=== PATIENT | male | born 1985 | race Caucasian/White ===

== ENCOUNTER 2021-02-06 16:10 | Emergency (ER) | payer OTHER, BC, SELFPAY ==
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
[2021-02-06 16:13] VITALS: BP 117/65; PULSE 77; RESP 18; TEMP 36.6; O2SAT 95; BMI 29.6
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
[2021-02-06] MEDS: Diphth,Pertus(ACell),Tet Adult 0.5 ML SYRINGE IM (17:46)
== END 2021-02-06 18:05 | disposition home or self-care (01) ==
PROVIDERS: Emergency Provider Emergency Medicine Emergency Medical Services
DX: S80.12XA Contusion of left lower leg, initial encounter (principal); S80.812A Abrasion, left lower leg, initial encounter; S93.402A Sprain of unspecified ligament of left ankle, initial encounter; S40.011A Contusion of right shoulder, initial encounter; V22.4XXA Motorcycle driver injured in collision with two- or three-wheeled motor vehicle in traffic accident, initial encounter; Y93.89 Activity, other specified; Y92.414 Local residential or business street as the place of occurrence of the external cause; Y99.9 Unspecified external cause status
CPT/HCPCS: 73000; 73030; 73560; 73590; 73610; 90471; 90715; 99283; 99284

== ENCOUNTER 2021-08-11 08:07 | Emergency (ER) | payer BC, SELFPAY ==
[2021-08-11 08:14] VITALS: BP 145/59; PULSE 50; RESP 16; TEMP 36.8; O2SAT 99
[2021-08-11 08:17] VITALS: BMI 29.7
[2021-08-11 08:30] LABS: MANUAL DIFF FLAG NO
[2021-08-11 08:32] LABS: Basophils Percent Auto 0.1 % (0-2); Hematocrit 45.6 % (42.0-52.0); Hemoglobin 15.9 g/dl (14.0-18.0); Imm Gran Abs Auto 0.02 X10*3/uL (0.00-0.03); Imm Gran Pct Auto 0.2 % (0.0-0.4); Lymphocytes Absolute Auto 0.9 X10*3/uL (1.2-4.9); Lymphocytes Percent Auto 9.8 % (20-40); Mean Corpuscular HGB Conc 34.9 g/dl (31.0-36.0); Mean Corpuscular Hemoglobin 30.8 pg (27.0-33.0); Mean Corpuscular Volume 88.4 fL (80.0-98.0); Mean Platelet Volume 9.6 fL (9.4-12.4); Monocytes Absolute Auto 0.7 X10*3/uL (0.1-1.2); Monocytes Percent Auto 7.5 % (2-11); Neutrophils Absolute Auto 7.4 x10*3/uL (2.0-8.3); Neutrophils Percent Auto 82.4 % (45-73); Platelet Count 253 X10*3/uL (160-400); Red Blood Count 5.16 X10*6/uL (4.60-5.80); Red Cell Distribution Width 11.2 % (11.0-16.0)
[2021-08-11] MEDS: ondansetron HCL 4 MG/2 ML VIAL IVPUSH (08:40)
[2021-08-11] MEDS: Lactated Ringers 1,000 ML 999 ML IV ×2 (08:41)
[2021-08-11 08:48] LABS: Appearance Urine CLEAR; Color Urine YELLOW; Glucose Urine UA NEG (NEG); Leukocyte Esterase Urine NEG (NEG); Nitrite Urine NEG (NEG); UACC Culture Trigger NO; Urine Blood NEG (NEG); Urine Ketones NEG (NEG); Urine Protein 1+ MG/DL (NEG-TRACE)
[2021-08-11 08:56] LABS: Amorphous Sediment Urine 1+ /LPF; RBC Urine 0-2 /HPF (0); Squamous Epithelial Cell Urine TRACE /LPF; WBC Urine 0 /HPF (0-4)
[2021-08-11] MEDS: Famotidine/PF 20 MG/2 ML VIAL IVPUSH (09:06)
[2021-08-11] MEDS: Lidocaine HCl Viscous 2 % 15 ML SOLUTION MUCOUS MEM (09:07)
[2021-08-11] MEDS: Magnesium Hydrox/Alum Hydrox 30 ML ORAL.SUSP PO (09:07)
[2021-08-11] MEDS: PHENobarb/Hyoscy/Atropine/Scop 10 ML ELIXIR PO (09:07)
--- NOTE | 2021-08-11 09:07 | ED_ITS ---
HPI - Nausea/Vomiting/Diarrhea General Chief complaint: Nausea/Vomiting/Diarrhea Stated complaint: COVID+/Vomiting Time Seen by Provider: 08/11/21 08:33 Source: patient Mode of arrival: ambulatory Limitations: no limitations History of Present Illness HPI Narrative: 36-year-old male who tested COVID positivve this past 08/07/21, presents to ED for abdominal cramping pain with vomiting. Patient denies any chest pain, shortness of breath, coughing up blood, epigastric pain, fever, chills, leg swelling, or calf pain. Patient states due to COVID also feeling fatigued. Patient denies any blood in stool. Patient states he is not vaccinated and refused to get COVID vaccine. Related Data Previous Rx's Medication Instructions Recorded doxycycline hyclate 100 mg tablet 100 mg PO BID #14 tab 03/01/21 Allergies Allergy/AdvReac Type Severity Reaction Status Date / Time No Known Allergies Allergy Verified 02/06/21 16:13 Review of Systems Verdana 4l Review of Systems: Verdana 4d Abdominal cramping and Verdana 4d vomiting Verdana 4d Yes all other systems are reviewed and are negative [facility] Past Medical History Medical History (Updated 08/11/21 @ 12:18 by VALERY Maki) No pertinent past medical history Surgical History History of surgery on arm Social History Social History Alcohol intake: unknown Smoked in Last 30 Days: No Use of substances other than those prescribed or required for medical reasons: No Any prior treatment program specific to substance use: No Advance Directives: No Advance Directives Information Provided: No Physical Exam Verdana 4l Vital Signs: Verdana 4d Verdana 4d Vital Signs: Verdana 4d Verdana 4Bd Last Vital Signs Verdana 4d Lunch Wagon Operator New 4d Lunch Wagon Operator New 4d Temp 98.2 F 08/11/21 08:14 Lunch Wagon Operator New 4d Pulse 46 L 08/11/21 10:50 Lunch Wagon Operator New 4d Resp 14 08/11/21 10:50 BP 111/48 L 08/11/21 10:50 Pulse Ox 98 08/11/21 10:50 BMI result Body Mass Index 29.7 Const: General: cooperative, healthy appearing, comfortable, no acute distress, well developed, alert, awake and Physically active Orientation/consciousness: oriented to time and patient oriented x3 HENMT: Head: Yes normal to inspection, Yes No palpable skull fracture present, Yes normocephalic and No atraumatic Eyes: General: appearance normal, both eyes and all related structures Neck: Neck: Yes normal visual inspection, Yes full ROM, Yes no lymphadenopathy, Yes no meningeal signs, Yes trachea midline, Yes supple, No anterior neck swelling and No tender Chest: Chest palpation & inspection: normal inspection of the chest Resp: Effort & Inspection: normal respiratory effort and able to speak in complete sentences Auscultation: clear to auscultation bilaterally Cardio: Jugular venous distension: no JVD Heart sounds: S1 normal heart sound present and S2 normal heart sound present GI: Inspection: Yes normal to inspection and No abdominal wall ecchymosis Palpation (GI): Soft to palpation, not firm, nontender, no guarding and not rigid : General: No CVA tenderness and Yes no CVA tenderness Back/Spine/Pelvis: Back: no CVA tenderness, No CVA tenderness and No back tenderness Skin: General skin exam: no rashes or lesions noted and elasticity normal Neuro: General: oriented to time, patient oriented x3, no meningeal signs and CN's II- XI intact bilaterally Cranial nerves: Yes CN's II-XII intact bilaterally Extrem: Other: Lower extremities negative for swelling, pitting edema, calf tenderness General: Yes normal to inspection and Yes full ROM Psych: Appearance: grossly normal, well kempt and not disheveled Course Course Course Narrative: Patient presents not any distress abdominal exam is benign. No indication for cardiac evaluation or pulmonary evaluation. Patient is not having any epigastric, chest pain, shortness of breath. Not suspecting MO or PE. Will just check for labs to evaluate for electrolyte deficiency. Fluids ordered and GI cocktail. Reevaluation(s) Reevaluation #1: Patient feels better after receiving GI cocktail and fluids. Patient passed p.o. challenge. Patient educated on being hydrated. Presently not suspecting any MO or PE. Patient denies any chest pain or shortness of breath. Patient educated on signs of respiratory distress, MO, or PE. No need for any abdominal imaging. Time: 12:10 MDM - Nausea/Vomiting/Diarrhea MDM Narrative Medical decision making narrative: COVID-19 Lab Data Result diagrams: 08/11/21 08:24 08/11/21 08:24 Labs: Lab Results 08/11/21 08/11/21 08/11/21 Range/Units 08:24 08:24 08:43 WBC 9.0 (4.8-10.8) X10*3/uL RBC 5.16 (4.60-5.80) X10*6/uL Hgb 15.9 (14.0-18.0) g/dl Hct 45.6 (42.0-52.0) % MCV 88.4 (80.0-98.0) fL MCH 30.8 (27.0-33.0) pg MCHC 34.9 (31.0-36.0) g/dl RDW 11.2 (11.0-16.0) % Plt Count 253 (160-400) X10*3/uL MPV 9.6 (9.4-12.4) fL Immature Gran % (Auto) 0.2 (0.0-0.4) % Neut % (Auto) 82.4 H (45-73) % Lymph % (Auto) 9.8 L (20-40) % [place] % (Auto) 7.5 (2-11) % Eos % (Auto) 0.0 (0-4) % Baso % (Auto) 0.1 (0-2) % Lymph # (Auto) 0.9 L (1.2-4.9) X10*3/uL [place] # (Auto) 0.7 (0.1-1.2) X10*3/uL Eos # (Auto) 0.0 (0.0-0.4) X10*3/uL Baso # (Auto) 0.0 (0.0-0.2) X10*3/uL Abs Immat Gran (auto) 0.02 (0.00-0.03) X10*3/uL Absolute Neuts (auto) 7.4 (2.0-8.3) x10*3/uL Absolute Nucleated RBC 0.000 (0.0-0.012) X10*3/uL Nucleated RBC % (auto) 0.0 (0.0-0.2) /100WBC Sodium 142 (135-145) mmol/L Potassium 3.1 L (3.3-5.1) mmol/L Chloride 94 L (96-108) mmol/L Carbon Dioxide 32 H (22-29) mmol/L Anion Gap 19 (12-20) BUN 23 H (9-16) mg/dL Creatinine 1.21 (0.5-1.4) mg/dL Estim Creat Clear Calc 86.7 Estimated GFR > 60 Random Glucose 155 H (60-115) mg/dL Calcium 10.3 H (8.4-10.2) mg/dL Total Bilirubin 0.6 (0.0-1.0) mg/dL Direct Bilirubin 0.3 (0.0-0.5) mg/dL AST 28 (5-37) U/L ALT 35 (0-40) U/L Alkaline Phosphatase 75 (39-117) U/L Total Protein 8.1 H (6.5-8.0) g/dL Albumin 4.9 (3.5-5.0) g/dL Lipase 23 (8-78) U/L Urine Color YELLOW Urine Appearance CLEAR Urine pH 8.0 (5.0-8.0) Ur Specific [place] 1.010 (1.005-1.025) Urine Protein 1+ H (NEG-TRACE) MG/DL Urine Glucose (UA) NEG (NEG) MG/DL Urine Ketones NEG (NEG) MG/DL Urine Blood NEG (NEG) Urine Nitrite NEG (NEG) Ur Leukocyte Esterase NEG (NEG) Urine RBC 0-2 (0) /HPF Urine WBC 0 (0-4) /HPF Ur Squamous Epith Cells TRACE /LPF Amorphous Sediment 1+ /LPF Urine Bacteria NONE /LPF Discharge Plan Discharge Clinical Impression: COVID-19, Acute viral syndrome Patient Disposition: Home, Self-Care Instructions: Viral Syndrome (ED), COVID-19 (Coronavirus Disease 2019) (ED) Additional Instructions: Recommend brat diet ( Bannana, Rice, Appelsesauce, and Ventana). Stay hydrated with water, Gatorade and seltzer water. Return to ED for any chest pain, shortness of breath, weakness, dizziness, leg swelling, calf pain, coughing up blood, or any other concerning symptoms. Prescriptions: No Action doxycycline hyclate 100 mg tablet 100 mg PO BID Qty: 14 0RF Stand Alone Forms: Work/School Release Interventions: ED Discharge Assessment Last Done: 08/11/21 12:26 Discharge Date/Time: 08/11/21 12:41 Print Language: Tamazight
--- NOTE | 2021-08-11 09:23 | PC.NURSE ---
[id number]: contact made to lab regarding prolonged result for chemistry. Per Sonia in Chemistry, specimine is not hemolyized, but delay is due to clotting
[2021-08-11 09:24] LABS: Alanine Aminotransferase 35 U/L (0-40); Albumin Level 4.9 g/dL (3.5-5.0); Alkaline Phosphatase 75 U/L (39-117); Anion Gap 19 (12-20); Aspartate Amino Transferase 28 U/L (5-37); Bilirubin Direct 0.3 mg/dL (0.0-0.5); Bilirubin Total 0.6 mg/dL (0.0-1.0); Blood Urea Nitrogen 23 mg/dL (9-16); Calcium 10.3 mg/dL (8.4-10.2); Carbon Dioxide 32 mmol/L (22-29); Chloride 94 mmol/L (96-108); Creatinine Clr Calc Pharmacy 86.7; Estimated Glomerular Filt Rate > 60; Glucose Random 155 mg/dL (60-115); Potassium 3.1 mmol/L (3.3-5.1); Sodium 142 mmol/L (135-145); Total Protein 8.1 g/dL (6.5-8.0)
[2021-08-11 09:48] LABS: Lipase 23 U/L (8-78)
[2021-08-11 10:50] VITALS: BP 111/48; PULSE 46; RESP 14; O2SAT 98
[2021-08-11] MEDS: Potassium Chloride Packet 20 MEQ PACKET 40 MEQ PO (12:11)
== END 2021-08-11 12:41 | disposition home or self-care (01) ==
PROVIDERS: Physician Assistant; Emergency Provider Emergency Medicine Emergency Medical Services
DX: U07.1 COVID-19 (principal); B34.9 Viral infection, unspecified; Z79.899 Other long term (current) drug therapy
CPT/HCPCS: 36415; 80053; 81001; 82248; 83690; 85025; 96361; 96374; 96375; 99284; 99285; J2405

== ENCOUNTER 2021-08-13 10:35 | Emergency (ER) | payer BC, SELFPAY ==
--- NOTE | 2021-08-13 | ECG_ITS ---
Test Reason : cp Blood Pressure : / mmHG Vent. Rate : 052 BPM Atrial Rate : 052 BPM P-R Int : 120 ms QRS Dur : 098 ms QT Int : 478 ms P-R-T Axes : 045 023 045 degrees QTc Int : 444 ms Sinus bradycardia Otherwise normal ECG No previous ECGs available Referred By: Generic ED Physician Electronically Signed By:HANNA MARIE
--- NOTE | ~2021-08-13 | XR_ITS ---
EXAMINATION: XR CHEST CLINICAL INFORMATION: Chest pain and SOB. COMPARISON: None TECHNIQUE: Frontal view of the chest was obtained. FINDINGS: The lungs are well-expanded and clear. The heart size and pulmonary vascularity is normal. There is a curvilinear radiopaque foreign body overlying the left lower hemithorax. No gross bony or the body seen. XR/XR chest 1V IMPRESSION: Unremarkable chest exam. There is a curvilinear radiopaque foreign body overlying the left lower hemithorax. Correlate clinically.
--- NOTE | ~2021-08-13 | CT_ITS ---
EXAMINATION: CT ABDOMEN AND PELVIS WITH CONTRAST CLINICAL INFORMATION: 36-year-old male with diffuse abdominal pain and vomiting. COMPARISON: None TECHNIQUE: Multidetector volumetric images were obtained from the superior aspect of the liver through the pubic symphysis following administration 85 mL of Omnipaque 350 intravenous contrast. Sagittal and coronal reformatted images were obtained on the technologist's workstation. This CT examination was performed using dose optimization techniques as appropriate, variously including the following: *Automated exposure control *Adjustment of mA and/or kV according to patient size (this includes techniques or standardized protocols for targeted exams where dose is matched to indication/reason for exam; i.e. extremities or head) *Use of iterative reconstruction technique DLP: 745 mGy-cm FINDINGS: Visualized lung bases are well aerated. The liver demonstrates normal size, contour and attenuation. The gallbladder is normal in appearance. The pancreas, spleen and adrenal glands are unremarkable. Symmetrically enhancing kidneys. There is no hydronephrosis of either kidney. Normal caliber loops of small and large bowel. Normal appendix. Normal caliber abdominal aorta. No gross retroperitoneal lymphadenopathy. The bladder is normal in appearance. The prostate gland is normal in size. There is no gross free pelvic fluid. Small fat-containing inguinal hernias bilaterally. No inguinal lymphadenopathy. No acute osseous abnormality. CT/CT abdomen pelvis w con IMPRESSION: No CT evidence for acute abnormality within the abdomen or pelvis. Fleischner guidelines were followed.
[2021-08-13 10:38] VITALS: BP 150/99; PULSE 56; RESP 20; TEMP 37; O2SAT 100; BMI 28.1
[2021-08-13] MEDS: 0.9 % Sodium Chloride 1,000 ML 999 ML IV ×2 (12:05→14:56)
[2021-08-13 12:12] VITALS: BP 142/87; TEMP 37.2
[2021-08-13 12:22] VITALS: PULSE 44; RESP 10; O2SAT 99
--- NOTE | 2021-08-13 12:37 | PC.NURSE ---
Patient A&O x3, able to follow commands. Reports vomiting with eating and drinking with increased burning chest pain and SOB. Patient is sinus dawna on monitor. MM pink and moist, speaking full sentences and not using accessory muscles to breath.
--- NOTE | 2021-08-13 12:45 | ED_ITS ---
HPI - SOB/Dyspnea General Chief Complaint: Dyspnea Stated Complaint: DIFF BREATHING VOMITNG Time Seen by Provider: 08/13/21 11:10 Source: patient and family Mode of arrival: ambulatory Limitations: no limitations History of Present Illness HPI Narrative: 36-year-old male healthy here with reports of vomiting, shortness of breath, chest burning. Of note the patient started to have symptoms of COVID on August 06. He was tested on August 07 positive. He was seen here August 11 with reports of abdominal cramping and vomiting. Reports he initially had fever the 1st 3 days of being sick but this resolved. Starting Monday he developed this abdominal burning and cramping in addition to vomiting with some chest burning and shortness of breath and cough. The patient denies any leg swelling or pain. No fever, neck pain joint pain, rash. Patient tells me yesterday and the day before he took several doses of Pepto-Bismol. He noted yesterday after moving his bowels that his stools appeared black in color. He tells me that his bowels are somewhat constipated with no bright red blood. He denies any hematemesis. Patient tells me he is here today as he cannot tolerate any p.o. fluids. Of note, the patient is unvaccinated for COVID Related Data Previous Rx's Medication Instructions Recorded doxycycline hyclate 100 mg tablet 100 mg PO BID #14 tab 03/01/21 lorazepam 1 mg tablet (Ativan) 1 mg PO BID PRN #5 tab 08/13/21 ondansetron 4 mg disintegrating 4 mg PO Q6H PRN #10 tab 08/13/21 tablet Allergies Allergy/AdvReac Type Severity Reaction Status Date / Time No Known Allergies Allergy Verified 02/06/21 16:13 Review of Systems Verdana 4l Review of Systems: Yes all other systems are reviewed and Verdana 4d are negative Verdana 4l Constitutional: Verdana 4d Constitutional: Verdana 4d Verdana 4d Reports no additional constitutional complaints, Denies body ache(s), Denies chills, Denies fever(s), Denies headache(s), Reports malaise and Denies weakness Verdana 4l Eyes: Verdana 4d Verdana 4d Eyes: Verdana 4d Reports no additional eye complaints and Denies change in vision Verdana 4l ENT: Verdana 4d Reports system reviewed and no additional complaints, except as documented, Denies dizziness, Denies headache(s), Denies nasal congestion, Denies nasal discharge and Denies neck pain Verdana 4l Cardiovascular: Verdana 4d Cardiovascular: Verdana 4d Verdana 4d Reports no additional cardiovascular complaints, Reports chest pain, Denies leg edema and Reports dyspnea Verdana 4l Respiratory: Verdana 4d Verdana 4d Respiratory: Verdana 4d Reports no additional respiratory complaints, Reports cough and Reports dyspnea Verdana 4l Gastrointestinal: Verdana 4d Gastrointestinal: Verdana 4d Verdana 4d Reports no additional gastrointestinal complaints, Reports abdominal pain, Reports melena, Denies hematochezia, Denies diarrhea, Reports nausea, Reports vomiting and Denies hematemesis Verdana 4l Genitourinary: Verdana 4d Verdana 4d Genitourinary: Verdana 4d Denies urinary incontinence Verdana 4l Musculoskeletal: Verdana 4d Musculoskeletal: Verdana 4d Verdana 4d Reports no additional musculoskeletal complaints, Denies back pain, Denies arthralgias, Denies joint swelling, Denies neck pain, Denies numbness and Denies tingling Verdana 4l Integumentary/Breasts: Verdana 4d Skin/Breast: Verdana 4d Verdana 4d Reports system reviewed and no additional complaints, except as docu and Denies rash Verdana 4l Neurologic: Verdana 4d Reports system reviewed and no additional complaints, except as documented, Denies Abnormal speech present, Denies dizziness, Denies headache(s), Denies numbness, Denies tingling and Denies weakness PMFSH Past Medical History Attestation statement: The following information was validated with the patient. Source: old records reviewed and nursing notes reviewed Medical History No pertinent past medical history Surgical History History of surgery on arm Social History Social History Alcohol intake: never Patient Tobacco Use Status: Never used Tobacco Use of substances other than those prescribed or required for medical reasons: Yes Substance Use Type: Marijuana Advance Directives: No Advance Directives Information Provided: Yes Physical Exam Verdana 4l Vital Signs: Verdana 4d Verdana 4d Vital Signs: Verdana 4d Verdana 4Bd Last Vital Signs Verdana 4d Tank Builder Supervisor New 4d Tank Builder Supervisor New 4d Temp 98.8 F 08/13/21 15:41 Tank Builder Supervisor New 4d Pulse 51 08/13/21 15:41 Tank Builder Supervisor New 4d Resp 11 L 08/13/21 15:41 BP 123/77 08/13/21 15:41 Pulse Ox 98 08/13/21 15:41 BMI result Body Mass Index 28.1 Const: General: cooperative and anxious Orientation/consciousness: patient oriented x3 Limitations: no limitations HENMT: Head: Yes normal to inspection Ears: hearing grossly normal bilaterally and TM's normal bilaterally General nose exam: Normal external nose present Face and sinus: Yes normal facial exam Mouth: Normal oral and palatal mucosa present Throat: Yes posterior oropharynx normal, Yes tonsils normal and Yes uvula midline Eyes: General: appearance normal, both eyes and all related structures Pupils: Equal, round and reactive pupils present Neck: Neck: Yes normal visual inspection, Yes full ROM, Yes no lymphadenopathy and Yes no meningeal signs Chest: Chest palpation & inspection: normal inspection of the chest Resp: Effort & Inspection: normal respiratory effort Auscultation: clear to auscultation bilaterally Cardio: Rate: bradycardic (Rate 46) Rhythm: regular rhythm Peripheral pulses: Peripheral pulses 2+ throughout GI: Other: Rectal exam chaperoned Shivani Brown stool Inspection: Yes normal to inspection Palpation (GI): Soft to palpation and Tenderness to palpation present (GI) (Mild epigastric with no rebound or guarding) Auscultation: normal bowel sounds Back/Spine/Pelvis: Thoracic/Lumbar Spine: thoracic and lumbar spine normal to inspection Skin: General skin exam: no rashes or lesions noted Neuro: General: patient oriented x3, no meningeal signs, no focal motor deficits and normal sensation to monofilament Cranial nerves: Yes Equal, round and connie ctive pupils present Cognition (Neuro): normal cognition Speech: No Abnormal speech present Gait exam (Neuro): Normal gait present Motor exam (neuro): 5/5 motor strength present throughout Extrem: General: Yes normal to inspection, Yes no pedal edema and Yes no calf tenderness Course Course Course Narrative: 36-year-old male known COVID positive here with reports of nausea, vomiting, epigastric and chest burning with some shortness of breath and cough since Monday. Patient seen here in August 11 with similar symptoms with improvement with GI cocktail. Patient tells me he is here as he cannot tolerate p.o. liquids and is also having hard black stools. Of note patient is taking Pepto-Bismol.. On arrival the patient is anxious.. His abdomen is soft. He has some mild tenderness to the epigastric area with no rebound or guarding. Vitals are stable with the exception of some mild bradycardia. On review of chart this is normal for patient. Rectal exam shows brown stool. Will check EKG, chest x-ray, labs, occult stool. Will gently hydrate, give PPI and GI cocktail and reassessed. 1358-labs are unremarkable. Occult stool is negative. EKG, chest x-ray and d dimer are unremarkable. Patient is complaining of continued abdominal pain which he reports is now diffuse. On exam the abdomen is soft but diffusely tender. Patient reports continued nausea and vomiting. He is quite anxious. Will check CT A/P, give ativan, phenergan, 2nd liter NSB and re-assess. 1545-CT abdomen pelvis shows no acute finding. He went into the room the patient was sleeping on his side appears very comfortable. I did wake him up. He reports overall improved but still having some slight discomfort and nausea. Able to tolerate p.o.. Plan for discharge home with antiemetic. Patient tells me he feels better after receiving the Ativan so will give him a small supply of this. Reviewed worrisome signs and symptoms of when to return to the emergency department. Comfortable discharge home. MDM - SOB/Dyspnea Medical Records Attestation: I reviewed the patient's medical records. Lab Data Attestation: I reviewed the patient's lab results. Result diagrams: 08/13/21 12:43 08/13/21 12:43 Labs: Lab Results 08/13/21 08/13/21 08/13/21 Range/Units 12:43 12:43 12:43 WBC 14.3 H (4.8-10.8) X10*3/uL RBC 5.16 (4.60-5.80) X10*6/uL Hgb 15.9 (14.0-18.0) g/dl Hct 44.1 (42.0-52.0) % MCV 85.5 (80.0-98.0) fL MCH 30.8 (27.0-33.0) pg MCHC 36.1 H (31.0-36.0) g/dl RDW 10.9 L (11.0-16.0) % Plt Count 301 (160-400) X10*3/uL MPV 9.7 (9.4-12.4) fL Immature Gran % (Auto) 0.3 (0.0-0.4) % Neut % (Auto) 89.2 H (45-73) % Lymph % (Auto) 5.9 L (20-40) % [place] % (Auto) 4.5 (2-11) % Eos % (Auto) 0.0 (0-4) % Baso % (Auto) 0.1 (0-2) % Lymph # (Auto) 0.8 L (1.2-4.9) X10*3/uL [place] # (Auto) 0.7 (0.1-1.2) X10*3/uL Eos # (Auto) 0.0 (0.0-0.4) X10*3/uL Baso # (Auto) 0.0 (0.0-0.2) X10*3/uL Abs Immat Gran (auto) 0.05 H (0.00-0.03) X10*3/uL Absolute Neuts (auto) 12.7 H (2.0-8.3) x10*3/uL Absolute Nucleated RBC 0.000 (0.0-0.012) X10*3/uL Nucleated RBC % (auto) 0.0 (0.0-0.2) /100WBC PT 12.2 (9.9-13.0) SEC INR 1.1 (0.9-1.1) D-Dimer High Sensitivty < 150 NG/ML Sodium 141 (135-145) mmol/L Potassium 3.5 (3.3-5.1) mmol/L Chloride 99 (96-108) mmol/L Carbon Dioxide 29 (22-29) mmol/L Anion Gap 17 (12-20) BUN 18 H (9-16) mg/dL Creatinine 0.94 (0.5-1.4) mg/dL Estim Creat Clear Calc 112.4 Estimated GFR > 60 Random Glucose 113 (60-115) mg/dL Lactic Acid (0.5-2.0) mmol/L Calcium 10.0 (8.4-10.2) mg/dL Magnesium 2.2 (1.6-2.6) mg/dL Ferritin (20-250) ng/mL Total Bilirubin 1.1 H (0.0-1.0) mg/dL Direct Bilirubin 0.4 (0.0-0.5) mg/dL AST 28 (5-37) U/L ALT 50 H (0-40) U/L Alkaline Phosphatase 80 (39-117) U/L Lactate Dehydrogenase 201 (118-273) U/L Troponin I High Sens (<3.5-35.0) ng/L C-Reactive Protein 0.14 (< or = 0.50) mg/dL B-Natriuretic Peptide (<100) pg/mL Total Protein 7.7 (6.5-8.0) g/dL Albumin 4.6 (3.5-5.0) g/dL Lipase 26 (8-78) U/L Procalcitonin ng/mL Urine Color Urine Appearance Urine pH (5.0-8.0) Ur Specific [place] (1.005-1.025) Urine Protein (NEG-TRACE) MG/DL Urine Glucose (UA) (NEG) MG/DL Urine Ketones (NEG) MG/DL Urine Blood (NEG) Urine Nitrite (NEG) Ur Leukocyte Esterase (NEG) Stool Occult Blood (NEGATIVE) 08/13/21 08/13/21 08/13/21 Range/Units 12:43 12:43 13:39 WBC (4.8-10.8) X10*3/uL RBC (4.60-5.80) X10*6/uL Hgb (14.0-18.0) g/dl Hct (42.0-52.0) % MCV (80.0-98.0) fL MCH (27.0-33.0) pg MCHC (31.0-36.0) g/dl RDW (11.0-16.0) % Plt Count (160-400) X10*3/uL MPV (9.4-12.4) fL Immature Gran % (Auto) (0.0-0.4) % Neut % (Auto) (45-73) % Lymph % (Auto) (20-40) % [place] % (Auto) (2-11) % Eos % (Auto) (0-4) % Baso % (Auto) (0-2) % Lymph # (Auto) (1.2-4.9) X10*3/uL [place] # (Auto) (0.1-1.2) X10*3/uL Eos # (Auto) (0.0-0.4) X10*3/uL Baso # (Auto) (0.0-0.2) X10*3/uL Abs Immat Gran (auto) (0.00-0.03) X10*3/uL Absolute Neuts (auto) (2.0-8.3) x10*3/uL Absolute Nucleated RBC (0.0-0.012) X10*3/uL Nucleated RBC % (auto) (0.0-0.2) /100WBC PT (9.9-13.0) SEC INR (0.9-1.1) D-Dimer High Sensitivty NG/ML Sodium (135-145) mmol/L Potassium (3.3-5.1) mmol/L Chloride (96-108) mmol/L Carbon Dioxide (22-29) mmol/L Anion Gap (12-20) BUN (9-16) mg/dL Creatinine (0.5-1.4) mg/dL Estim Creat Clear Calc Estimated GFR Random Glucose (60-115) mg/dL Lactic Acid 1.5 (0.5-2.0) mmol/L Calcium (8.4-10.2) mg/dL Magnesium (1.6-2.6) mg/dL Ferritin (20-250) ng/mL Total Bilirubin (0.0-1.0) mg/dL Direct Bilirubin (0.0-0.5) mg/dL AST (5-37) U/L ALT (0-40) U/L Alkaline Phosphatase (39-117) U/L Lactate Dehydrogenase (118-273) U/L Troponin I High Sens < 3.5 (<3.5-35.0) ng/L C-Reactive Protein (< or = 0.50) mg/dL B-Natriuretic Peptide < 10 (<100) pg/mL Total Protein (6.5-8.0) g/dL Albumin (3.5-5.0) g/dL Lipase (8-78) U/L Procalcitonin ng/mL Urine Color Urine Appearance Urine pH (5.0-8.0) Ur Specific [place] (1.005-1.025) Urine Protein (NEG-TRACE) MG/DL Urine Glucose (UA) (NEG) MG/DL Urine Ketones (NEG) MG/DL Urine Blood (NEG) Urine Nitrite (NEG) Ur Leukocyte Esterase (NEG) Stool Occult Blood NEGATIVE (NEGATIVE) 08/13/21 08/13/21 08/13/21 Range/Units 13:39 13:39 15:40 WBC (4.8-10.8) X10*3/uL RBC (4.60-5.80) X10*6/uL Hgb (14.0-18.0) g/dl Hct (42.0-52.0) % MCV (80.0-98.0) fL MCH (27.0-33.0) pg MCHC (31.0-36.0) g/dl RDW (11.0-16.0) % Plt Count (160-400) X10*3/uL MPV (9.4-12.4) fL Immature Gran % (Auto) (0.0-0.4) % Neut % (Auto) (45-73) % Lymph % (Auto) (20-40) % [place] % (Auto) (2-11) % Eos % (Auto) (0-4) % Baso % (Auto) (0-2) % Lymph # (Auto) (1.2-4.9) X10*3/uL [place] # (Auto) (0.1-1.2) X10*3/uL Eos # (Auto) (0.0-0.4) X10*3/uL Baso # (Auto) (0.0-0.2) X10*3/uL Abs Immat Gran (auto) (0.00-0.03) X10*3/uL Absolute Neuts (auto) (2.0-8.3) x10*3/uL Absolute Nucleated RBC (0.0-0.012) X10*3/uL Nucleated RBC % (auto) (0.0-0.2) /100WBC PT (9.9-13.0) SEC INR (0.9-1.1) D-Dimer High Sensitivty NG/ML Sodium (135-145) mmol/L Potassium (3.3-5.1) mmol/L Chloride (96-108) mmol/L Carbon Dioxide (22-29) mmol/L Anion Gap (12-20) BUN (9-16) mg/dL Creatinine (0.5-1.4) mg/dL Estim Creat Clear Calc Estimated GFR Random Glucose (60-115) mg/dL Lactic Acid (0.5-2.0) mmol/L Calcium (8.4-10.2) mg/dL Magnesium (1.6-2.6) mg/dL Ferritin 202 (20-250) ng/mL Total Bilirubin (0.0-1.0) mg/dL Direct Bilirubin (0.0-0.5) mg/dL AST (5-37) U/L ALT (0-40) U/L Alkaline Phosphatase (39-117) U/L Lactate Dehydrogenase (118-273) U/L Troponin I High Sens (<3.5-35.0) ng/L C-Reactive Protein (< or = 0.50) mg/dL B-Natriuretic Peptide (<100) pg/mL Total Protein (6.5-8.0) g/dL Albumin (3.5-5.0) g/dL Lipase (8-78) U/L Procalcitonin 0.02 ng/mL Urine Color YELLOW Urine Appearance CLEAR Urine pH 8.5 H (5.0-8.0) Ur Specific [place] 1.010 (1.005-1.025) Urine Protein NEG (NEG-TRACE) MG/DL Urine Glucose (UA) NEG (NEG) MG/DL Urine Ketones >=80 (NEG) MG/DL Urine Blood NEG (NEG) Urine Nitrite NEG (NEG) Ur Leukocyte Esterase NEG (NEG) Stool Occult Blood (NEGATIVE) Imaging Data Chest x-ray: Attestation: I personally reviewed and interpreted this imaging study as follows: Radiologist's impression: EXAMINATION: XR CHEST CLINICAL INFORMATION: Chest pain and SOB. COMPARISON: None TECHNIQUE: Frontal view of the chest was obtained. FINDINGS: The lungs are well-expanded and clear. The heart size and pulmonary vascularity is normal. There is a curvilinear radiopaque foreign body overlying the left lower hemithorax. No gross bony or the body seen. XR/XR chest 1V IMPRESSION: Unremarkable chest exam. ? There is a curvilinear radiopaque foreign body overlying the left lower hemithorax. Correlate clinically. ? CT scan - abdomen: Attestation: I personally reviewed and interpreted this imaging study as follows: Radiologist's impression: FINDINGS: Visualized lung bases are well aerated. The liver demonstrates normal size, contour and attenuation. The gallbladder is normal in appearance. The pancreas, spleen and adrenal glands are unremarkable. Symmetrically enhancing kidneys. There is no hydronephrosis of either kidney. Normal caliber loops of small and large bowel. Normal appendix. Normal caliber abdominal aorta. No gross retroperitoneal lymphadenopathy. The bladder is normal in appearance. The prostate gland is normal in size. There is no gross free pelvic fluid. Small fat-containing inguinal hernias bilaterally. No inguinal lymphadenopathy. No acute osseous abnormality. ECG Data Attestation: I personally reviewed and interpreted this ECG as follows: ECG interpretation date: 08/13/21 ECG interpretation time: 12:52 Interpretation: Sinus bradycardia with a rate of 52, normal [place], normal QRS, normal QT Discharge Plan Discharge Clinical Impression: COVID-19, Nausea & vomiting Patient Disposition: Home, Self-Care Instructions: Acute Nausea and Vomiting (ED), COVID-19 (Coronavirus Disease 2019) (ED) Additional Instructions: Continue quarantine as needed Start with clear liquids then advance diet as tolerated Prescriptions: New ondansetron 4 mg tablet,disintegrating 4 mg PO Q6H PRN (Reason: nausea and vomiting) Qty: 10 0RF lorazepam [Ativan] 1 mg tablet 1 mg PO BID PRN (Reason: anxiety) Qty: 5 0RF No Action doxycycline hyclate 100 mg tablet 100 mg PO BID Qty: 14 0RF Referrals: Physician,None [Primary Care Provider] - 2 days Interventions: ED Discharge Assessment Last Done: 08/13/21 16:43 Discharge Date/Time: 08/13/21 16:44
[2021-08-13 12:54] LABS: MANUAL DIFF FLAG NO
[2021-08-13 13:00] LABS: OBS Int Ctl Valid YES; OBS1 NEGATIVE (NEGATIVE)
[2021-08-13 13:03] LABS: Basophils Percent Auto 0.1 % (0-2); Hematocrit 44.1 % (42.0-52.0); Hemoglobin 15.9 g/dl (14.0-18.0); Imm Gran Abs Auto 0.05 X10*3/uL (0.00-0.03); Imm Gran Pct Auto 0.3 % (0.0-0.4); Lymphocytes Absolute Auto 0.8 X10*3/uL (1.2-4.9); Lymphocytes Percent Auto 5.9 % (20-40); Mean Corpuscular HGB Conc 36.1 g/dl (31.0-36.0); Mean Corpuscular Hemoglobin 30.8 pg (27.0-33.0); Mean Corpuscular Volume 85.5 fL (80.0-98.0); Mean Platelet Volume 9.7 fL (9.4-12.4); Monocytes Absolute Auto 0.7 X10*3/uL (0.1-1.2); Monocytes Percent Auto 4.5 % (2-11); Neutrophils Absolute Auto 12.7 x10*3/uL (2.0-8.3); Neutrophils Percent Auto 89.2 % (45-73); Platelet Count 301 X10*3/uL (160-400); Red Blood Count 5.16 X10*6/uL (4.60-5.80); Red Cell Distribution Width 10.9 % (11.0-16.0); White Blood Count 14.3 X10*3/uL (4.8-10.8)
[2021-08-13 13:09] LABS: INTERNATIONAL NORM RATIO 1.1 (0.9-1.1); Prothrombin Time 12.2 SEC (9.9-13.0)
[2021-08-13 13:16] LABS: Alanine Aminotransferase 50 U/L (0-40); Albumin Level 4.6 g/dL (3.5-5.0); Alkaline Phosphatase 80 U/L (39-117); Anion Gap 17 (12-20); Aspartate Amino Transferase 28 U/L (5-37); Bilirubin Direct 0.4 mg/dL (0.0-0.5); Bilirubin Total 1.1 mg/dL (0.0-1.0); Blood Urea Nitrogen 18 mg/dL (9-16); C Reactive Protein 0.14 mg/dL (< or = 0.50); Carbon Dioxide 29 mmol/L (22-29); Chloride 99 mmol/L (96-108); Creatinine Clr Calc Pharmacy 112.4; Estimated Glomerular Filt Rate > 60; Glucose Random 113 mg/dL (60-115); Lactate Dehydrogenase 201 U/L (118-273); Magnesium 2.2 mg/dL (1.6-2.6); Potassium 3.5 mmol/L (3.3-5.1); Sodium 141 mmol/L (135-145); Total Protein 7.7 g/dL (6.5-8.0)
[2021-08-13] MEDS: Magnesium Hydrox/Alum Hydrox 30 ML ORAL.SUSP PO (13:16)
[2021-08-13] MEDS: Lidocaine HCl Viscous 2 % 15 ML SOLUTION MUCOUS MEM (13:17)
[2021-08-13] MEDS: Famotidine/PF 20 MG/2 ML VIAL IVPUSH (13:17)
[2021-08-13] MEDS: ondansetron HCL 4 MG/2 ML VIAL IVPUSH (13:17)
[2021-08-13 13:18] LABS: D Dimer High Sensitivity < 150 NG/ML
[2021-08-13 13:24] LABS: B Type Natriuretic Peptide < 10 pg/mL (<100); Troponin-I High Sensitivity < 3.5 ng/L (<3.5-35.0)
[2021-08-13 13:58] LABS: Lactic Acid 1.5 mmol/L (0.5-2.0)
[2021-08-13] MEDS: iohexoL 350 MG/ML 100 ML INFUS..BTL IV (14:20)
[2021-08-13 14:25] LABS: Procalcitonin 0.02 ng/mL
[2021-08-13 14:31] LABS: Ferritin 202 ng/mL (20-250)
[2021-08-13 14:38] LABS: Lipase 26 U/L (8-78)
[2021-08-13] MEDS: LORazepam 2 MG/ML VIAL 1 MG IVPUSH (14:56)
[2021-08-13 15:41] VITALS: BP 123/77; PULSE 51; RESP 11; TEMP 37.1; O2SAT 98
[2021-08-13 15:51] LABS: Appearance Urine CLEAR; Color Urine YELLOW; Glucose Urine UA NEG (NEG); Leukocyte Esterase Urine NEG (NEG); Nitrite Urine NEG (NEG); PH 8.5 (5.0-8.0); Urine Blood NEG (NEG); Urine Ketones >=80 MG/DL (NEG); Urine Protein NEG (NEG-TRACE)
== END 2021-08-13 16:44 | disposition home or self-care (01) ==
PROVIDERS: Nurse Practitioner Family; Emergency Provider Emergency Medicine
DX: U07.1 COVID-19 (principal); R11.2 Nausea with vomiting, unspecified; R06.02 Shortness of breath
CPT/HCPCS: 36415; 71045; 74177; 80048; 80076; 81003; 82272; 82728; 83605; 83615; 83690; 83735; 83880; 84145; 84484; 85025; 85379; 85610; 86140; 87040; 93005; 96361; 96374; 96375; 99284; 99285; J2060; J2405; J2550; Q9967

== ENCOUNTER 2023-05-04 08:07 | Outpatient (AMB) | payer BC, SELFPAY ==
[2023-05-04 08:15] VITALS: BP 120/76; PULSE 58; TEMP 36.8; O2SAT 97; BMI 26.0
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
== END 2023-05-04 09:04 | disposition home or self-care (01) ==
PROVIDERS: Visit Provider Emergency Medicine
DX: S99.929A Unspecified injury of unspecified foot, initial encounter (principal)
CPT/HCPCS: 99213

== ENCOUNTER 2023-05-04 08:30 | Outpatient (REF) | payer BC, SELFPAY ==
--- NOTE | ~2023-05-04 | XR_ITS ---
EXAMINATION: XR FOOT, LEFT CLINICAL INFORMATION: Injury COMPARISON: Left ankle radiograph from 02/06/2021 TECHNIQUE: AP, lateral, and oblique views of the left foot. FINDINGS: No acute visible fracture or dislocation. Joint spaces and alignment are maintained. Soft tissues are unremarkable. XR/XR foot LT min 3V IMPRESSION: No acute visible fracture or dislocation.
== END 2023-05-04 08:31 | disposition home or self-care (01) ==
LOC: HO.HMGCX 08:30
PROVIDERS: Visit Provider Emergency Medicine
DX: S99.922A Unspecified injury of left foot, initial encounter (principal)
CPT/HCPCS: 73630